=== PATIENT | female | born 1985 | race African-American/Black ===

== ENCOUNTER → 2016-04-30 | Outpatient (CLI) | payer MEDICAID ==
[~2016-04-30] MED LIST: FOLI5CAP; GABA100C; NAPR250T74; NOR5T; OXYC30TA50; [UNRECOGNIZED DRUG - OTHER]
== END | disposition home or self-care (01) ==
LOC: Rad HDHVI 08:45
PROVIDERS: ATTEND Internal Medicine Cardiovascular Disease
DX: R07.9 Chest pain, unspecified (principal)
CPT/HCPCS: 93306

== ENCOUNTER → 2016-05-01 | Outpatient (CLI) | payer MEDICAID ==
[~2016-05-01] VITALS: Ht 161.9 cm; Wt 115.7 kg
== END | disposition home or self-care (01) ==
LOC: Rad HDHVI 13:32
PROVIDERS: ATTEND Internal Medicine Cardiovascular Disease
DX: R07.9 Chest pain, unspecified (principal); Z82.49 Family history of ischemic heart disease and other diseases of the circulatory system
CPT/HCPCS: 93017

== ENCOUNTER 2017-07-03 15:36 | Emergency (ER) | payer MEDICAID ==
[~2017-07-03] VITALS: Ht 165.1 cm; Wt 117.9 kg
[~2017-07-03 15:36] MED LIST changes: +HYDR-4683; -NOR5T
[2017-07-03 16:16] VITALS: BP 118/72
[2017-07-03] MEDS ORDERED: LIDOCAINE 1% HCL (LOCAL ANESTH.) INJ 20ML MDV IJ ONE (17:00)
[2017-07-03] MEDS ORDERED: KETOROLAC TROMETH 60MG/2ML VIAL IM ONE (17:15)
== END 2017-07-03 18:35 | disposition home or self-care (01) ==
LOC: ER 15:38
DX: N75.1 Abscess of Bartholin's gland (principal); F17.210 Nicotine dependence, cigarettes, uncomplicated; Z79.899 Other long term (current) drug therapy
CPT/HCPCS: 56420; 96372; 99284; J1885; J2001